=== PATIENT | male | born 1975 | race Caucasian/White ===

== ENCOUNTER → 2018-12-26 | Outpatient (REF) | payer OTHER ==
[2018-12-26 14:50] LABS: RHEUMATOID FACTOR QUANT < 10.0 IU/ML (<15.0); THYROID STIMULATING HORMONE 0.679 uIU/ML (0.358-3.740)
[2018-12-26 14:51] LABS: FOLATE > 24.0 NG/ML; VITAMIN B12 LEVEL 1053 PG/ML
[2018-12-31 19:10] LABS: ANTINUCLEAR ANTIBODIES DIRECT Negative (Negative); CERULOPLASMIN 19.8 mg/dL (16.0-31.0); COPPER PLASMA 83 ug/dL (72-166); VITAMIN B1 LEVEL WHOLE BLOOD 155.6 nmol/L (66.5-200.0); VITAMIN B6,PYRIDOXAL PHOSPHATE 45.5 ug/L (5.3-46.7); VITAMIN E(ALPHA TOCOPHEROL) 8.1 mg/L (7.0-25.1); VITAMIN E(GAMMA TOCOPHEROL) 0.7 mg/L (0.5-5.5)
== END ==
LOC: M LABNEURO 09:07
PROVIDERS: ATTEND Psychiatry & Neurology Neurology
DX: R25.1 Tremor, unspecified (principal)

== ENCOUNTER → 2020-10-14 | Outpatient (CLI) | payer SELFPAY | LOC: M LABSMTC 14:29 | PROVIDERS: ATTEND Pediatrics | DX: Z20.828 Contact with and (suspected) exposure to other viral communicable diseases (principal) ==

== ENCOUNTER → 2020-12-01 | Outpatient (CLI) | payer OTHER ==
[2020-12-01 12:17] LABS: BASO % 0.8 % (0.0-1.0); EOS # 0.3 10^3/uL (0.0-0.5); EOS % 5.1 % (0.0-3.0); HEMATOCRIT 47.3 % (42.0-52.0); HEMOGLOBIN 15.7 g/dl (13.5-17.5); LYMPH # 1.6 10^3/uL (1.5-5.0); LYMPH % 30.2 % (24.0-44.0); MEAN CORPUSCULAR HEMOGLOBIN 29.1 pg (27.0-33.0); MEAN CORPUSCULAR HGB CONC 33.2 g/dl (32.0-36.5); MEAN CORPUSCULAR VOLUME 87.6 fl (80.0-96.0); MONO # 0.4 10^3/uL (0.0-0.8); MONO % 7.2 % (0.0-5.0); NEUTROPHILS % 56.3 % (36.0-66.0); PLATELET COUNT, AUTOMATED 271 10^3/uL (150-450); WHITE BLOOD COUNT 5.3 10^3/uL (4.0-10.0)
[2020-12-01 12:38] LABS: ALBUMIN 4.3 GM/DL (3.2-5.2); ALT/SGPT 42 U/L (12-78); BILIRUBIN,TOTAL 0.7 MG/DL (0.2-1.0); BLOOD UREA NITROGEN 17 MG/DL (7-18); CALCIUM LEVEL 9.9 MG/DL (8.5-10.1); CARBON DIOXIDE LEVEL 30 MEQ/L (21-32); CHLORIDE LEVEL 105 MEQ/L (98-107); CREATININE FOR GFR 0.95 MG/DL (0.70-1.30); FREE T4 0.92 NG/DL (0.76-1.46); GLOMERULAR FILTRATION RATE > 60.0 (>60); GLUCOSE, FASTING 98 MG/DL (70-100); POTASSIUM SERUM 4.2 MEQ/L (3.5-5.1); SODIUM LEVEL 139 MEQ/L (136-145); THYROID STIMULATING HORMONE 0.967 uIU/ML (0.358-3.740); TOTAL 25(OH) VITAMIN D 35.5 NG/ML (30.0-100.0); TOTAL PROTEIN 7.1 GM/DL (6.4-8.2)
[2020-12-02 19:07] LABS: PSA TOTAL 1.2 ng/mL (0.0-4.0); TESTOSTERONE FREE (DIRECT) 19.7 pg/mL (6.8-21.5)
== END ==
LOC: M PLALAB 08:02
PROVIDERS: ATTEND Physician Assistant
DX: G47.33 Obstructive sleep apnea (adult) (pediatric) (principal); R53.83 Other fatigue; Z12.5 Encounter for screening for malignant neoplasm of prostate

== ENCOUNTER → 2021-02-18 | Outpatient (CLI) | payer OTHER ==
--- NOTE | 2021-02-20 16:25 | SLEEPCENT ---
NOCTURNAL POLYSOMNOGRAPHY CPAP TITRATION DATE: 02/18/2021 ORDERED BY: HERNANDEZ Shrestha Nocturnal polysomnography was performed for the titration of pressure therapy in this patient with obstructive sleep apnea syndrome with apnea-hypopnea index of 27.4. For testing, the patient was fit with a [employer] full face mask of medium size was used, 6 cm of water pressure were applied to the circuit, and the lights were extinguished. 8 hours and 13 minutes of data were reviewed. There were 379 minutes of sleep identified. Sleep latency was normal at 17 minutes. REM latency was normal at 97.5 minutes. Sleep architecture was good with six REM cycles noted. Overall sleep efficiency was 78.8%. The electrocardiogram showed a sinus rhythm with an average heart rate of 56 beats per minute; rate range 40 to 78. EEG showed normal waveforms for wake and sleep. Respiratory events were fully palliated with CPAP at a pressure of 11 and remaining measures of sleep physiology were normal. IMPRESSION: Obstructive sleep apnea syndrome (G47.33). RECOMMENDATION: Nightly use of pressure therapy 11 cm of water.
== END ==
LOC: M SLEEP 20:00
PROVIDERS: ATTEND Nurse Practitioner Family
DX: G47.33 Obstructive sleep apnea (adult) (pediatric) (principal)

== ENCOUNTER → 2021-06-20 | Outpatient (CLI) | payer OTHER ==
--- NOTE | 2021-06-23 15:50 | SLEEPMSLT ---
DATE: 06/20/2021 ORDERED BY: Roberta Beck Nocturnal polysomnography with multiple sleep latency testing was performed to determine optimal CPAP pressure and assess excessive daytime somnolence. For testing, patient used a [employer] full-face mask of medium size. There was 11 cm of water pressure applied to the circuit, and the lights were extinguished. There was 7 hours and 29 minutes of data reviewed. There was 299 minutes of sleep identified. Sleep latency was mildly prolonged at 37.5 minutes. REM latency was normal at 86.5 minutes. Sleep architecture was reasonably good. There were four REM cycles. Some minor fragmentation was noted late in the study. Overall sleep efficiency was 67.4%. The electrocardiogram showed a sinus rhythm with an average heart rate of 55 beats per minute. Rate ranged 45-70. EEG showed some mild coarsening in background. No focal events were identified, and there were normal waveforms for wake and sleep. No respiratory events were identified of 10 seconds in duration or greater on the CPAP pressure of 11. There was some minor scattered limb activity in the EMG leads, but limb movement arousal index was 5. Nocturnal polysomnography was followed by multiple sleep latency testing. Four nap opportunities were offered at 2-hour intervals. Sleep was appreciated on only 1 of four nap opportunities. No sleep onset REM periods were identified. Mean sleep latency was calculated at 16.9 minutes. IMPRESSION: 1. Obstructive sleep apnea syndrome (G47.33). 2. No evidence of excessive somnolence on multiple sleep latency testing. RECOMMENDATION: Continued nightly use of CPAP at 11 cm of water.
== END ==
LOC: M SLEEP 20:00
PROVIDERS: ATTEND Nurse Practitioner Family
DX: G47.33 Obstructive sleep apnea (adult) (pediatric) (principal)

== ENCOUNTER 2021-07-04 06:09 | Emergency (ER) | payer OTHER ==
[~2021-07-04] VITALS: Ht 182.9 cm; Wt 88.5 kg
[2021-07-04] MEDS ORDERED: CLAR10CA3 PO (06:21)
[2021-07-04] MEDS ORDERED: OXYB-54 PO (06:21)
[2021-07-04] MEDS ORDERED: OMEP40CA4 PO ×2 (06:22)
[2021-07-04] MEDS ORDERED: KETOROLAC 30 MG/ML 1ML VIAL IM ONE (08:00)
--- NOTE | 2021-07-04 08:29 | REP ---
INDICATION: fall COMPARISON: None. TECHNIQUE: AP, lateral, bilateral oblique views left hand. FINDINGS: Fracture at the base of the 4th and 5th proximal phalanges with overlying soft tissue swelling. Cannot exclude subtle nondisplaced fracture at the base of 5th metacarpal bone which should be correlated clinically. IMPRESSION: Acute fractures at the base of the 4th and 5th proximal phalanges. Cannot exclude nondisplaced fracture at the base of the 5th metacarpal bone. <Electronically signed by Felipe Elkins > 07/04/21 [id number]
--- NOTE | 2021-07-04 08:30 | REP ---
INDICATION: fall COMPARISON: None. TECHNIQUE: AP, lateral, bilateral oblique views right 1st toe. FINDINGS: Lateral view best demonstrates fracture at the terminal tuft distal phalanx. Remainder of the examination is essentially age-appropriate and without further acute fracture or dislocation. IMPRESSION: Fracture of the 5th toe terminal tuft. <Electronically signed by Felipe Elkins > 07/04/21 [id number]
[2021-07-04] MEDS ORDERED: MORPHINE 4 MG/ML 1ML VIAL/SYRINGE (J2270) IM ONE (09:10)
[2021-07-04 12:17] VITALS: BP 117/74
[2021-07-04] MEDS ORDERED: PERC5TAB12 PO (12:28)
== END 2021-07-04 12:41 | disposition home or self-care (01) ==
LOC: M ED 06:09
DX: S62.346A Nondisplaced fracture of base of fifth metacarpal bone, right hand, initial encounter for closed fracture (principal); S62.615A Displaced fracture of proximal phalanx of left ring finger, initial encounter for closed fracture; S62.617A Displaced fracture of proximal phalanx of left little finger, initial encounter for closed fracture; S92.401A Displaced unspecified fracture of right great toe, initial encounter for closed fracture; S90.211A Contusion of right great toe with damage to nail, initial encounter; W19.XXXA Unspecified fall, initial encounter; S60.519A Abrasion of unspecified hand, initial encounter; T14.8XXA Other injury of unspecified body region, initial encounter; Y92.9 Unspecified place or not applicable; Y93.02 Activity, running; Y99.9 Unspecified external cause status; J30.2 Other seasonal allergic rhinitis; K21.9 Gastro-esophageal reflux disease without esophagitis; N32.81 Overactive bladder
CPT/HCPCS: 73130; 73660; 96372; 99284; J1885; J2270

== ENCOUNTER → 2021-12-06 | Outpatient (CLI) | payer OTHER ==
[~2021-12-06] MED LIST: CLAR10CA3 PO; OMEP40CA4 PO; OXYB-54 PO; PERC5TAB12 PO; VALA500T5 PO; VITMTA PO
== END ==
LOC: M LABSMTC 10:20
PROVIDERS: ATTEND Anesthesiology
DX: Z01.812 Encounter for preprocedural laboratory examination (principal); Z20.822 Contact with and (suspected) exposure to COVID-19

== ENCOUNTER 2021-12-11 10:23 | Day surgery (SDC) | payer OTHER ==
[~2021-12-11] VITALS: Ht 182.9 cm; Wt 92.3 kg
[2021-12-11 13:31] VITALS: BP 109/67
== END 2021-12-11 13:35 | disposition home or self-care (01) ==
LOC: M OPP 10:23
PROVIDERS: ATTEND Internal Medicine Gastroenterology
DX: Z12.11 Encounter for screening for malignant neoplasm of colon (principal); Z80.0 Family history of malignant neoplasm of digestive organs; K63.5 Polyp of colon; K57.30 Diverticulosis of large intestine without perforation or abscess without bleeding; K64.8 Other hemorrhoids; K22.89 Other specified disease of esophagus; K22.4 Dyskinesia of esophagus; R13.10 Dysphagia, unspecified; R11.10 Vomiting, unspecified; Z79.899 Other long term (current) drug therapy
CPT/HCPCS: 43239; 43249; 45385; 88305; J3010

== ENCOUNTER → 2022-02-10 | Outpatient (CLI) | payer OTHER | LOC: M LABSMTC 09:58 | PROVIDERS: ATTEND Internal Medicine Gastroenterology | DX: Z01.812 Encounter for preprocedural laboratory examination (principal); Z20.822 Contact with and (suspected) exposure to COVID-19 ==

== ENCOUNTER → 2024-01-18 | Outpatient (CLI) | payer OTHER | LOC: M RAD 14:18 | PROVIDERS: ATTEND Chiropractor | DX: M54.12 Radiculopathy, cervical region (principal); M48.02 Spinal stenosis, cervical region ==